=== PATIENT | male | born 1985 | race African-American/Black ===

== ENCOUNTER 2016-11-13 09:23 | Emergency (ER) | payer SELFPAY ==
[~2016-11-13] VITALS: Wt 94.5 kg
[2016-11-13] MEDS ORDERED: DIPHTH/TET/ACEL PERTUSS (ADULT) 0.5 ML VIAL IM* ONE (10:30)
[2016-11-13] MEDS ORDERED: IBUP-1542 PO (10:35)
[2016-11-13] MEDS ORDERED: DOXY100T20 PO (10:36)
--- NOTE | 2016-11-13 10:41 | ERD ---
ER Documentation Chief Complaint Date/Time DATE: 11/13/16 TIME: 10:38 Chief Complaint DOG BITE TO RIGHT HAND HPI This is a 30-year-old male who presents emergency department today complaining of a dog bite to his right hand. States he washed out yesterday. States that the dog was a puppy that belonged to his friends. States he is unsure when his last tetanus vaccine is. Denies any fevers or chills. ROS All systems reviewed and are negative except as per history of present illness. Medications Home Meds Active Scripts Doxycycline Hyclate* (Doxycycline Hyclate*) 100 Mg Tablet.dr, 100 MG PO BID for 7 Days, TAB Prov:YARI FOLEY PA-C 11/13/16 Ibuprofen* (Motrin*) 600 Mg Tab, 600 MG PO Q6, #30 TAB Prov:YARI FOLEY PA-C 11/13/16 Allergies Allergies: Uncoded Allergies: PCN (Allergy, Severe, Fever, Rash, 11/13/16) PMhx/Soc Medical and Surgical Hx: pt denies Medical Hx, pt denies Surgical Hx Hx Alcohol Use: No Hx Substance Use: No Hx Tobacco Use: No Smoking Status: Never smoker Physical Exam Vitals Vital Signs Date Time Temp Pulse Resp B/P Pulse Ox O2 Delivery O2 Flow Rate FiO2 11/13/16 09:26 98.0 81 18 162/71 99 Physical Exam Const: pleasant, NAD Head: Atraumatic Eyes: Normal Conjunctiva ENT: Normal External Ears, Nose and Mouth. Neck: Full range of motion..~ No meningismus. Resp: Clear to auscultation bilaterally Cardio: Regular rate and rhythm, no murmurs Skin: Right hand with small puncture over right thumb. Back: No midline or flank tenderness Ext: Right hand with no obvious deformity. No effusion. No ecchymosis. Full active range of motion. 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 Neur: Awake and alert Psych: Normal Mood and Affect Results 24 hrs Current Medications Medications (Trade) Dose Ordered Sig/Desiree Route PRN Reason Start Time Stop Time Status Last Admin Dose Admin Diphtheria/ Tetanus/Acell Pertussis (Adacel) 0.5 ml ONCE ONCE IM* 11/13/16 10:30 11/13/16 10:31 DC 11/13/16 10:22 Procedures/MDM This a 30-year-old male who presents the emergency department today for a dog bite from his friend's puppy that occurred last night. Patient is afebrile and otherwise well-appearing. He has very superficial wounds over his right thumb and index finger. 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 I do not feel the patient requires imaging at this time. Low suspicion for acute fracture. Wound was cleaned here in the emergency department. Low suspicion for cellulitis, deep space tracking infection. Patient is allergic to penicillin derivatives and therefore was given a prescription for doxycycline and Motrin. Patient was instructed to return in 48 hours for wound check. Patient understood and agreed with plan. At this time the patient is stable for discharge and outpatient management. Patient should follow up with their PCP in the next 1-2 days. They may return to the emergency department sooner for any persistent or worsening of symptoms. Patient understood and agreed with the plan. Departure Diagnosis: Primary Impression: Dog bite Encounter type: initial encounter Qualified Code: W54.0XXA - Dog bite, initial encounter Condition: Fair Patient Instructions: Dog Bite Referrals: [facility] YOU HAVE RECEIVED A MEDICAL SCREENING EXAM AND THE RESULTS INDICATE THAT YOU DO NOT HAVE A CONDITION THAT REQUIRES URGENT TREATMENT IN THE EMERGENCY DEPARTMENT. FURTHER EVALUATION AND TREATMENT OF YOUR CONDITION CAN WAIT UNTIL YOU ARE SEEN IN YOUR DOCTORS OFFICE WITHIN THE NEXT 1-2 DAYS. IT IS YOUR RESPONSIBILITY TO MAKE AN APPOINTMENT FOR FOLOW-UP CARE. IF YOU HAVE A PRIMARY DOCTOR --you should call your primary doctor and schedule an appointment IF YOU DO NOT HAVE A PRIMARY DOCTOR YOU CAN CALL OUR PHYSICIAN REFERRAL HOTLINE AT IF YOU CAN NOT AFFORD TO SEE A PHYSICIAN YOU CAN CHOSE FROM THE FOLLOWING [facility] [address] [facility]. [facility] [address] [facility] [facility] [facility] [address] [facility]. [facility] [address] [facility]. [facility] [address] [facility]. [facility]. [address] Additional Instructions: Call your primary care doctor TOMORROW for an appointment during the next 1-2 days.See the doctor sooner or return here if your condition worsens before your appointment time. Take antibiotics as prescribed. Take Tylenol Motrin for pain. Wound check in 48 hours YARI FOLEY PA-C Nov 13, 2016 10:41
== END 2016-11-13 10:42 | disposition home or self-care (01) ==
LOC: FTE 09:23
DX: S61.451A Open bite of right hand, initial encounter (principal); W54.0XXA Bitten by dog, initial encounter; Y92.9 Unspecified place or not applicable; Z23 Encounter for immunization
CPT/HCPCS: 90471; 90715